=== PATIENT | male | born 1985 ===

== ENCOUNTER → 2022-04-23 17:55 | Outpatient (CLI) | payer BC, SELFPAY ==
--- NOTE | 2022-04-23 16:10 | DI.RAD_ITS ---
Exam(s) XR RIBS ONLY LT EXAM: XR RIBS ONLY LT CLINICAL HISTORY: RIB PAIN, LEFT SIDED, THIRD THROUGH FIFTH RIBS, POST BLUNT INJURY/FALL. COMPARISON: No exams were available for comparison . Four views. FINDINGS: LUNGS: Clear. No pneumothorax is seen. No infiltrate or effusion. HEART: Normal in size. BONES: There is mildly displaced fracture of the distal clavicle. No displaced rib fracture is seen. No bony destructive lesion is seen. The spine is grossly intact. IMPRESSION: Unremarkable chest and left ribs. Distal clavicle fracture.
--- NOTE | 2022-04-23 18:10 | DI.RAD_ITS ---
Exam(s) XR SHOULDER LT COMPLETE 2+V EXAM: XR SHOULDER LT COMPLETE 2+V CLINICAL HISTORY: POST BLUNT INJURY/FALL; L CLAVICLE AND ACROMION PAIN, ASYMMETRY. TECHNIQUE: 2D digital imaging was performed. Five views. COMPARISON: No exams were available for comparison FINDINGS: BONES: Distal clavicle fracture, mildly displaced. No additional fractures identified. No bony dest ructive lesion is seen. JOINTS: No dislocation present. AC joint not widened. SOFT TISSUE: Normal. Visualized portions of the lungs are clear. No pneumothorax is identified. IMPRESSION: Distal clavicle fracture. DATA REPOSITORY: RADIATION DOSE DELIVERED:
--- NOTE | 2022-04-23 19:00 | DI.VRAD_ITS ---
PROCEDURE INFORMATION: Exam: XR Left Shoulder Exam date and time: 04/23/2022 6:23 PM Age: 36 years old Clinical indication: Injury or trauma; Blunt trauma (contusions or hematomas); Shoulder; Left; Injury details: Post blunt injury/fall; L clavicle and acromion pain, asymmetry TECHNIQUE: Imaging protocol: XR Left shoulder. Views: 2 or more views. COMPARISON: CR XR RIBS ONLY LT 04/23/2022 6:20 PM FINDINGS: Bones/joints: A comminuted fracture is present in the distal clavicle, with mild displacement. The acromioclavicular alignment appears normal. The glenohumeral joint is appropriately located. Negative for fracture in the proximal humerus or the scapula. Visualized left ribs are intact. Lungs: Visualized left lung is clear. Soft tissues: No soft tissue air. IMPRESSION: Comminuted fracture at the distal clavicle. Dictated and Authenticated by: Arsenio Marquez MD. Ordering:PRINCE BIGGS MD
--- NOTE | 2022-04-23 19:02 | DI.VRAD_ITS ---
PROCEDURE INFORMATION: Exam: XR Left Ribs with PA Chest Exam date and time: 04/23/2022 6:20 PM Age: 36 years old Clinical indication: Injury or trauma; Rib area, left side; Blunt trauma; Injury date: 04/23/22; Injury details: Post blunt injury/fall; L clavicle and acromion pain, asymmetry TECHNIQUE: Imaging protocol: XR Left ribs with PA chest. Views: 3 views COMPARISON: No relevant prior studies available. FINDINGS: Lungs: Left lung is clear. Pleural spaces: Negative for left pneumothorax. Heart/Mediastinum: Unremarkable. No cardiomegaly. Bones/joints: No evidence of fracture in the left ribs. Comminuted fracture of the distal clavicle is again noted. Soft tissues: Negative for soft tissue air in the chest wall. IMPRESSION: 1. Negative for left rib fracture. 2. Distal left clavicle fracture. Dictated and Authenticated by: Arsenio Marquez MD. Ordering:PRINCE BIGGS MD
== END ==
PROVIDERS: Visit Provider Nurse Practitioner Family
DX: M25.512 Pain in left shoulder (principal); R07.81 Pleurodynia; S42.032A Displaced fracture of lateral end of left clavicle, initial encounter for closed fracture; W19.XXXA Unspecified fall, initial encounter
CPT/HCPCS: 71100; 73030